=== PATIENT | male | born 1950 | race Caucasian/White ===

== ENCOUNTER → 2017-09-01 | Outpatient (CLI) | payer OTHER ==
[~2017-09-01] MED LIST: GADOBUTROL 10 ML VIAL IVP ONE
== END ==
LOC: FIMAGING 15:17
PROVIDERS: ATTEND Psychiatry & Neurology Neurology
DX: R51 Headache (principal); D68.61 Antiphospholipid syndrome
CPT/HCPCS: 70544; 70553; A9585